=== PATIENT | male | born 1960 | race Caucasian/White ===

== ENCOUNTER 2020-02-23 08:56 | Inpatient (IN) | payer MEDICAID ==
[~2020-02-23] VITALS: Ht 180.3 cm; Wt 92.1 kg
[2020-02-23 10:51] LABS: BASOPHILS % 1.4 % (0.0-2.0); EOSINOPHILS % 6.9 % (0.0-5.0); HEMATOCRIT. 32.2 % (42.0-52.0); HEMOGLOBIN. 10.4 g/dL (14.0-18.0); LYMPHOCYTES % 16.2 % (20.0-50.0); MEAN CORPUSCULAR HEMOGLOBIN 24.4 pg (28.0-32.0); MEAN CORPUSCULAR VOLUME 75.7 fL (80.0-94.0); MEAN PLATELET VOLUME 7.7 fl (7.4-10.4); MONOCYTES % 8.7 % (2.0-8.0); NEUTROPHILS % 66.8 % (40.0-76.0); PLATELET 259 x1000/uL (130-400); RED BLOOD CELL COUNT 4.25 mill/uL (4.7-6.1)
[2020-02-23 10:54] LABS: CHLORIDE 110 mEq/L (98-107)
[2020-02-23] MEDS ORDERED: CLOPIDOGREL 75MG TABLET PO SCH (14:30)
[2020-02-23] MEDS: METOPROLOL TARTRATE 25MG TABLET PO SCH ×2 (14:40→22:30)
[2020-02-23] MEDS ORDERED: IPRATROPIUM/ALBUTEROL 0.5-3(2.5)MG/3ML NEB HHN PRN (15:45)
[2020-02-23] MEDS ORDERED: ACETAMINOPHEN 325MG TABLET PO PRN (15:45)
[2020-02-23] MEDS ORDERED: CLONIDINE 0.1MG TABLET PO PRN (15:45)
[2020-02-23] MEDS ORDERED: LORAZEPAM 0.5MG TABLET PO PRN (15:45)
[2020-02-23] MEDS ORDERED: HYDROCODONE/ACETAMINOPHEN 5/325MG TABLET PO PRN (15:45)
[2020-02-23] MEDS ORDERED: DOCUSATE SODIUM 100MG CAPSULE PO PRN (15:45)
[2020-02-23] MEDS ORDERED: ONDANSETRON HCL 4MG/2ML INJ IV PRN (15:45)
[2020-02-23] MEDS ORDERED: MORPHINE SULFATE 2 MG/ML CPJ (NOT FOR IM USE) IV PRN (15:45)
[2020-02-23] MEDS ORDERED: ATORVASTATIN CALCIUM 20MG TABLET PO SCH (21:00)
[2020-02-23 22:30] VITALS: BP 130/79
[2020-02-24] VITALS: BP 108/53
[2020-02-24] MEDS ORDERED: ASPIRIN 325MG EC TABLET PO SCH (09:00)
[2020-02-24] MEDS ORDERED: REGADENOSON 0.4 MG/5 ML IV SCH (14:30)
== END 2020-02-24 06:50 | disposition left against medical advice (07) | DRG 203 ==
LOC: ER 08:56 → 6WST 11:13 → ENRESERV 20:48
PROVIDERS: ADMIT Internal Medicine; ATTEND Internal Medicine
DX: M94.0 Chondrocostal junction syndrome [Tietze] (principal); D72.1 Eosinophilia; D50.9 Iron deficiency anemia, unspecified; D72.810 Lymphocytopenia; Z53.29 Procedure and treatment not carried out because of patient's decision for other reasons; Z82.49 Family history of ischemic heart disease and other diseases of the circulatory system
CPT/HCPCS: 36415; 71045; 80053; 80061; 82962; 83036; 83880; 84443; 84484; 85025; 85379; 93005; 99285